=== PATIENT | female | born 1965 | race African-American/Black ===

== ENCOUNTER 2019-07-18 09:55 | Inpatient (IN) ==
[2019-07-18 10:30] LABS: Basophils % 0.6 % (0.0-0.8); Eosinophils # 0.1 10*3/uL (0.0-0.87); Eosinophils % 0.9 % (0.00-10.9); Hematocrit 45.6 VOL% (35.7-47.0); Hemoglobin 14.6 GM/DL (12.0-16.0); Immature Granulocytes % 0.4 %; Immature Granulocytes Absolute 0.03 #; Lymphocytes # 2.6 10*3/uL (1.4-4.0); Lymphocytes % 37.8 % (21.3-54.2); Mean Corpuscular Volume 94.2 FL (87-102); Mean Platelet Volume 12.2 FL (9.6-12.0); Neutrophils % 48.3 % (38.7-73.9); Platelet Count 246 T/CUMM (130-400); Red Blood Count 4.84 MC/CUMM (3.8-5.5); Red Cell Distribution Width 13.3 % (9.3-17.3); White Blood Count 6.8 T/CUMM (4-12)
[2019-07-18 10:58] LABS: Osmolality,Calculated 279.1 MOS/KG (273-304)
[2019-07-18 11:59] LABS: Apearance,Urine Slightly Hazy (Clear); Bacteria,Urine Occasional /HPF (Few); Bilirubin,Urine Negative (Negative); Blood, Urine Negative (Negative); Glucose,Urine (UA) Negative (Negative); Hyaline Casts,Urine 13 /LPF (0-3); Ketones,Urine Negative (Negative); Mucus,Urine Occasional /LPF (Occasional); Nitrite,Urine Negative (Negative); Protein,Urine Negative; RBC,Urine 4 /HPF (0-4); Squamous Epithelial Cell,Urine Occasional /HPF (0-10); Urine Color Yellow (Yellow); Urine Specific Gravity 1.018 (1.001-1.035); WBC,Urine 49 /HPF (0-6)
[2019-07-18] MEDS ORDERED: GLUCAGON 1 MG VIAL IM PRN (12:19)
[2019-07-18] MEDS ORDERED: DEXTROSE 50% 25 GM/50 ML VIAL IV PRN (12:19)
[2019-07-18] MEDS ORDERED: ONDANSETRON 4 MG/2 ML VIAL IV PRN (12:27)
[2019-07-18] MEDS ORDERED: MAGNESIUM SULF RIDER 2 GM in PREMIX 1 EACH IV PRN (12:27)
[2019-07-18] MEDS ORDERED: ZALEPLON 5 MG CAPSULE PO PRN (12:27)
[2019-07-18] MEDS ORDERED: MAGNESIUM SULF RIDER 4 GM in PREMIX 1 EACH IV PRN (12:27)
[2019-07-18] MEDS ORDERED: MORPHINE 4 MG/1 ML VIAL IV PRN (12:27)
[2019-07-18] MEDS ORDERED: SODIUM CHLORIDE 0.9% 500 ML IV STA (15:06)
[2019-07-18] MEDS ORDERED: METOPROLOL TARTRATE 50 MG TABLET ONE (16:12)
[2019-07-18] MEDS ORDERED: METOPROLOL TARTRATE 50 MG TABLET PO ONE (16:23)
[2019-07-18] MEDS ORDERED: DILTIAZEM 50 MG/10 ML VIAL IV ONE (17:18)
[2019-07-18] MEDS: SODIUM CHLORIDE 0.45% 1,000 ML IV SCH (17:54)
[2019-07-18] MEDS ORDERED: METOPROLOL TARTRATE 25 MG TABLET PO SCH (21:00)
[2019-07-18] MEDS ORDERED: FLECAINIDE 100 MG TABLET PO SCH (21:00)
[2019-07-18] MEDS: AMOXICILLIN 875 MG TABLET PO SCH (22:14)
[2019-07-18] MEDS: ATORVASTATIN 40 MG TABLET PO SCH (22:14)
[2019-07-18] MEDS: APIXABAN 5 MG TABLET PO SCH (22:14)
[2019-07-19 05:59] LABS: Risk Ratio 2.72; VLDL CHOLESTEROL 21.6 MG/DL
[2019-07-19 06:06] LABS: Blood Urea Nitrogen 24 MG/DL (7-18); Calcium 8.7 MG/DL (8.5-10.1); Estimated Glom Filtration Rate 67 ML/MIN; Free T4 (Free Thyroxine) 1.14 NG/DL (0.76-1.46); Glucose 151 MG/DL (74-106); Troponin I < 0.015 NG/ML (0.00-0.045)
[2019-07-19] MEDS: LEVOTHYROXINE 100 MCG TABLET PO SCH (06:15)
[2019-07-19] MEDS: SODIUM CHLORIDE 0.45% 1,000 ML IV SCH ×3 (08:15→22:51)
[2019-07-19] MEDS ORDERED: MAGNESIUM HYDROXIDE SUSP 30 ML UDCUP PO PRN (08:17)
[2019-07-19] MEDS ORDERED: diphenhydrAMINE CAP 25 MG CAPSULE PO PRN (08:17)
[2019-07-19] MEDS ORDERED: hydroCHLOROthiazide 12.5 MG CAPSULE PO SCH (09:00)
[2019-07-19] MEDS: AMOXICILLIN 875 MG TABLET PO SCH ×2 (09:40→21:17)
[2019-07-19] MEDS: APIXABAN 5 MG TABLET PO SCH ×2 (09:40→21:22)
[2019-07-19] MEDS: PANTOPRAZOLE 40 MG TABLET PO SCH (09:40)
[2019-07-19] MEDS ORDERED: POTASSIUM CHLORIDE 20 MEQ TABLET PO ONE (15:56)
[2019-07-19] MEDS: ATORVASTATIN 40 MG TABLET PO SCH (21:17)
[2019-07-20 05:26] LABS: Basophils # 0.1 10*3/uL (0.0-0.2); Basophils % 0.9 % (0.0-0.8); Eosinophils # 0.1 10*3/uL (0.0-0.87); Eosinophils % 1.6 % (0.00-10.9); Hematocrit 39.3 VOL% (35.7-47.0); Immature Granulocytes % 0.4 %; Immature Granulocytes Absolute 0.02 #; Lymphocytes # 2.3 10*3/uL (1.4-4.0); Lymphocytes % 41.1 % (21.3-54.2); Mean Corpuscular HGB Conc 31.3 GM/DL (32-36); Mean Corpuscular Volume 96.3 FL (87-102); Mean Platelet Volume 12.3 FL (9.6-12.0); Monocytes % 11.6 % (1.7-12.7); Neutrophils % 44.4 % (38.7-73.9); Platelet Count 208 T/CUMM (130-400); Red Blood Count 4.08 MC/CUMM (3.8-5.5); Red Cell Distribution Width 13.2 % (9.3-17.3); White Blood Count 5.6 T/CUMM (4-12)
[2019-07-20 05:27] LABS: Hemoglobin 12.3 GM/DL (12.0-16.0)
[2019-07-20 05:50] LABS: Calcium 8.5 MG/DL (8.5-10.1); Osmolality,Calculated 278.8 MOS/KG (273-304)
[2019-07-20] MEDS: LEVOTHYROXINE 100 MCG TABLET PO SCH (06:30)
[2019-07-20] MEDS: APIXABAN 5 MG TABLET PO SCH ×2 (08:26→20:26)
[2019-07-20] MEDS: AMOXICILLIN 875 MG TABLET PO SCH ×2 (08:26→20:26)
[2019-07-20] MEDS: PANTOPRAZOLE 40 MG TABLET PO SCH (08:26)
[2019-07-20] MEDS: METOPROLOL TARTRATE 25 MG TABLET PO SCH ×2 (08:26→20:26)
[2019-07-20] MEDS: SODIUM CHLORIDE 0.45% 1,000 ML IV SCH (15:24)
[2019-07-20] MEDS: ATORVASTATIN 40 MG TABLET PO SCH (20:26)
[2019-07-21] MEDS: SODIUM CHLORIDE 0.45% 1,000 ML IV SCH (03:59)
[2019-07-21 04:15] LABS: Basophils % 0.6 % (0.0-0.8); Eosinophils # 0.1 10*3/uL (0.0-0.87); Eosinophils % 0.7 % (0.00-10.9); Hematocrit 38.1 VOL% (35.7-47.0); Hemoglobin 11.9 GM/DL (12.0-16.0); Immature Granulocytes % 0.1 %; Immature Granulocytes Absolute 0.01 #; Lymphocytes # 1.4 10*3/uL (1.4-4.0); Lymphocytes % 19.7 % (21.3-54.2); Mean Corpuscular HGB Conc 31.2 GM/DL (32-36); Mean Corpuscular Volume 96.9 FL (87-102); Mean Platelet Volume 12.1 FL (9.6-12.0); Monocytes % 8.6 % (1.7-12.7); Neutrophils % 70.3 % (38.7-73.9); Platelet Count 199 T/CUMM (130-400); Red Blood Count 3.93 MC/CUMM (3.8-5.5); Red Cell Distribution Width 13.1 % (9.3-17.3); White Blood Count 6.9 T/CUMM (4-12)
[2019-07-21 04:28] LABS: Calcium 8.2 MG/DL (8.5-10.1); Osmolality,Calculated 280.7 MOS/KG (273-304)
[2019-07-21] MEDS: LEVOTHYROXINE 100 MCG TABLET PO SCH (07:27)
[2019-07-21] MEDS ORDERED: MIDAZOLAM 2 MG/2 ML VIAL ONE (08:50)
[2019-07-21] MEDS ORDERED: ROCURONIUM 100 MG/10 ML VIAL IV ONE (08:51)
[2019-07-21] MEDS ORDERED: propofoL 200 MG/20 ML VIAL IV ONE (08:51)
[2019-07-21] MEDS ORDERED: fentaNYL 100 MCG/2 ML VIAL ONE (08:51)
[2019-07-21] MEDS ORDERED: ONDANSETRON 4 MG/2 ML VIAL ONE (08:51)
[2019-07-21] MEDS ORDERED: LIDOCAINE 2% 5 ML VIAL ONE (08:51)
[2019-07-21] MEDS ORDERED: ETOMIDATE 20 MG/10 ML VIAL IV ONE (09:18)
[2019-07-21] MEDS: APIXABAN 5 MG TABLET PO SCH ×2 (09:30→20:54)
[2019-07-21] MEDS: AMOXICILLIN 875 MG TABLET PO SCH ×2 (09:30→20:54)
[2019-07-21] MEDS: PANTOPRAZOLE 40 MG TABLET PO SCH (09:31)
[2019-07-21] MEDS: METOPROLOL TARTRATE 25 MG TABLET PO SCH ×2 (09:31→20:54)
[2019-07-21] MEDS ORDERED: HEPARIN/NACL 0.9% 2 UNITS/ML 500 ML IV ONE (10:14)
[2019-07-21] MEDS ORDERED: HEPARIN/NACL 0.9% 2 UNITS/ML 1,000 ML IV ONE (10:14)
[2019-07-21] MEDS ORDERED: LIDOCAINE 1% 20 ML VIAL ONE (10:14)
[2019-07-21] MEDS ORDERED: ADENOSINE 90 MG/30 ML VIAL IV ONE (12:09)
[2019-07-21] MEDS ORDERED: IBUPROFEN 400 MG TABLET PO PRN (12:25)
[2019-07-21] MEDS ORDERED: ACETAMINOPHEN 325 MG TABLET PO PRN (12:25)
[2019-07-21] MEDS ORDERED: HEPARIN 10,000 UNIT/10 ML VIAL ONE (12:58)
[2019-07-21] MEDS ORDERED: SODIUM CHLORIDE 0.9% 1,000 ML IV ONE (12:58)
[2019-07-21] MEDS ORDERED: SEVOFLURANE 1 UNIT/15 MINUTE INH ONE (12:58)
[2019-07-21] MEDS ORDERED: GLYCOPYRROLATE 0.4 MG/2 ML VIAL ONE (12:58)
[2019-07-21] MEDS ORDERED: NEOSTIGMINE 10 MG/10 ML VIAL ONE (12:58)
[2019-07-21] MEDS: ATORVASTATIN 40 MG TABLET PO SCH (20:54)
[2019-07-22] MEDS: LEVOTHYROXINE 100 MCG TABLET PO SCH (05:33)
[2019-07-22 05:40] LABS: Basophils # 0.1 10*3/uL (0.0-0.2); Basophils % 0.9 % (0.0-0.8); Eosinophils # 0.1 10*3/uL (0.0-0.87); Eosinophils % 1.7 % (0.00-10.9); Hematocrit 32.8 VOL% (35.7-47.0); Hemoglobin 10.2 GM/DL (12.0-16.0); Immature Granulocytes % 0.3 %; Immature Granulocytes Absolute 0.02 #; Lymphocytes # 1.6 10*3/uL (1.4-4.0); Lymphocytes % 27.1 % (21.3-54.2); Mean Corpuscular HGB Conc 31.1 GM/DL (32-36); Mean Platelet Volume 11.8 FL (9.6-12.0); Monocytes % 9.4 % (1.7-12.7); Neutrophils % 60.6 % (38.7-73.9); Platelet Count 198 T/CUMM (130-400); Red Blood Count 3.38 MC/CUMM (3.8-5.5); Red Cell Distribution Width 13.3 % (9.3-17.3); White Blood Count 5.8 T/CUMM (4-12)
[2019-07-22 06:18] LABS: Calcium 8.2 MG/DL (8.5-10.1); Osmolality,Calculated 278.4 MOS/KG (273-304)
[2019-07-22 07:49] VITALS: BP 106/59
[2019-07-22] MEDS: METOPROLOL TARTRATE 25 MG TABLET PO SCH (08:15)
[2019-07-22] MEDS: AMOXICILLIN 875 MG TABLET PO SCH (08:15)
[2019-07-22] MEDS: PANTOPRAZOLE 40 MG TABLET PO SCH (08:16)
[2019-07-22] MEDS: APIXABAN 5 MG TABLET PO SCH (08:16)
== END 2019-07-22 12:10 | disposition home or self-care (01) | DRG 274 ==
LOC: N.ED 09:55 → N.EDINP 12:27 → N.TELEN 15:32 → N.CC 16:15 → N.TELEN 07-21 21:39
PROVIDERS: ADMIT Internal Medicine Cardiovascular Disease; ATTEND Internal Medicine Cardiovascular Disease

== ENCOUNTER 2022-06-09 07:18 | Inpatient (IN) ==
[2022-06-09] MEDS ORDERED: HYDROmorphone 1 MG/1 ML SYRINGE IV STA (07:53)
[2022-06-09] MEDS ORDERED: SODIUM CHLORIDE 0.9% 1,000 ML IV STA (07:53)
[2022-06-09] MEDS ORDERED: ONDANSETRON 4 MG/2 ML VIAL IV STA (07:53)
[2022-06-09] MEDS ORDERED: LABETALOL 20 MG/4 ML SYRINGE IV STA (07:54)
[2022-06-09 08:30] LABS: Basophils % 0.3 % (0.0-0.8); Eosinophils % 0.3 % (0.00-10.9); Hematocrit 34.3 VOL% (35.7-47.0); Immature Granulocytes % 0.4 %; Immature Granulocytes Absolute 0.04 #; Lymphocytes # 2.1 10*3/uL (1.4-4.0); Lymphocytes % 19.8 % (21.3-54.2); Mean Corpuscular HGB Conc 32.1 GM/DL (32-36); Mean Corpuscular Volume 96.6 FL (87-102); Mean Platelet Volume 12.8 FL (9.6-12.0); Monocytes # 0.7 10*3/uL (0.11-0.8); Neutrophils % 73.2 % (38.7-73.9); Platelet Count 244 T/CUMM (130-400); Red Blood Count 3.55 MC/CUMM (3.8-5.5); White Blood Count 10.8 T/CUMM (4-12)
[2022-06-09 08:32] LABS: Calcium 9.6 MG/DL (8.5-10.1); Osmolality,Calculated 289.1 MOS/KG (273-304); Potassium 4.6 MMOL/L (3.5-5.1)
[2022-06-09] MEDS ORDERED: fentaNYL 100 MCG/2 ML VIAL IV STA ×2 (08:33→10:09)
[2022-06-09] MEDS ORDERED: fentaNYL 100 MCG/2 ML VIAL ONE (08:33)
[2022-06-09 08:54] LABS: RBC,Urine 2942 /HPF (0-4)
[2022-06-09 08:55] LABS: Bilirubin,Urine Negative (Negative); Blood, Urine Large mg/dL (Negative); Glucose,Urine (UA) 500 mg/dL (Negative); Ketones,Urine 15 mg/dL (Negative); Nitrite,Urine Negative (Negative); Protein,Urine 30 mg/dL (Negative); Urine Appearance Slightly Cloudy (Clear); Urine Color Red (Yellow); Urine Specific Gravity 1.015 (1.001-1.035); Urine Urobilinogen 0.2 eU/dL (<2.0); Urine pH 6.5 (4.5-8.0)
[2022-06-09] MEDS ORDERED: DIAZEPAM 10 MG/2 ML SYRINGE IV STA (10:09)
[2022-06-09] MEDS ORDERED: DOCUSATE SODIUM 100 MG CAPSULE PO PRN (12:45)
[2022-06-09] MEDS ORDERED: ALBUTEROL 2.5 MG/3 ML NEB RESP TX PRN (12:45)
[2022-06-09] MEDS ORDERED: GLUCAGON 1 MG VIAL IM PRN (12:45)
[2022-06-09] MEDS ORDERED: ONDANSETRON 4 MG/2 ML VIAL IV PRN (12:45)
[2022-06-09] MEDS ORDERED: SIMETHICONE CHEW 125 MG TABLET PO PRN (12:45)
[2022-06-09] MEDS ORDERED: ACETAMINOPHEN 325 MG TABLET PO PRN (12:45)
[2022-06-09] MEDS ORDERED: OXYBUTYNIN 5 MG TABLET PO PRN (12:49)
[2022-06-09] MEDS ORDERED: MAGNESIUM SULF RIDER 2 GM/50 ML PREMIX IV ONE ×2 (12:50→15:19)
[2022-06-09] MEDS ORDERED: DEXTROSE 10% 250 ML BAG IV PRN (12:59)
[2022-06-09] MEDS: SODIUM CHLORIDE 0.9% 1,000 ML IV SCH (13:12)
[2022-06-09 13:43] LABS: Hematocrit 32.2 VOL% (35.7-47.0); Hemoglobin 10.4 GM/DL (12.0-16.0)
[2022-06-09] MEDS: cefTRIAXone 1,000 MG in SODIUM CHLORIDE 0.9% 100 ML IV SCH (13:45)
[2022-06-09 14:05] LABS: Calcium 9.3 MG/DL (8.5-10.1); Osmolality,Calculated 297.4 MOS/KG (273-304)
[2022-06-09] MEDS: MORPHINE 2 MG/1 ML SYRINGE IV PRN (16:00)
[2022-06-09] MEDS: INSULIN LISPRO 100 UNIT/ML SUBCUT SCH ×2 (17:12→20:48)
[2022-06-09 18:28] LABS: Hematocrit 27.7 VOL% (35.7-47.0)
[2022-06-09] MEDS: FLECAINIDE 100 MG TABLET PO SCH (20:48)
[2022-06-09] MEDS: ATORVASTATIN 40 MG TABLET PO SCH (20:48)
[2022-06-10 01:12] LABS: Hematocrit 26.6 VOL% (35.7-47.0); Hemoglobin 8.6 GM/DL (12.0-16.0)
[2022-06-10] MEDS: SODIUM CHLORIDE 0.9% 1,000 ML IV SCH ×2 (01:32→12:21)
[2022-06-10 04:59] LABS: Basophils % 0.3 % (0.0-0.8); Eosinophils % 0.3 % (0.00-10.9); Hemoglobin 8.4 GM/DL (12.0-16.0); Immature Granulocytes % 0.4 %; Immature Granulocytes Absolute 0.05 #; Lymphocytes # 1.9 10*3/uL (1.4-4.0); Lymphocytes % 16.8 % (21.3-54.2); Mean Corpuscular HGB Conc 31.1 GM/DL (32-36); Mean Corpuscular Volume 99.6 FL (87-102); Mean Platelet Volume 12.4 FL (9.6-12.0); Monocytes % 8.6 % (1.7-12.7); Neutrophils % 73.6 % (38.7-73.9); Platelet Count 200 T/CUMM (130-400); Red Blood Count 2.71 MC/CUMM (3.8-5.5); Red Cell Distribution Width 13.4 % (9.3-17.3); White Blood Count 11.5 T/CUMM (4-12)
[2022-06-10 05:40] LABS: Alanine Aminotransferase 10 U/L (13-56); Albumin 2.7 G/DL (3.4-5.0); Alkaline Phosphatase 95 U/L (45-117); Aspartate Amino Transferase 10 U/L (0-37); Bilirubin,Total < 0.39 MG/DL (0.20-1.00); Blood Urea Nitrogen 23 MG/DL (7-18); Calcium 8.6 MG/DL (8.5-10.1); Carbon Dioxide 18 MMOL/L (21-32); Chloride 116 MMOL/L (98-107); Cholesterol 117 MG/DL (50-200); Glucose 113 MG/DL (74-106); HDL Cholesterol 57 MG/DL (40-60); Osmolality,Calculated 285.3 MOS/KG (273-304); Potassium 4.9 MMOL/L (3.5-5.1); Risk Ratio 2.05; Sodium 141 MMOL/L (136-145); Thyroid Stimulating Hormone 0.578 uIU/ml (0.358-3.74); Total Protein 6.6 G/DL (6.4-8.2); Triglycerides 81 MG/DL (2-150); VLDL Cholesterol 16.2 MG/DL
[2022-06-10] MEDS: LEVOTHYROXINE 112 MCG TABLET PO SCH (05:59)
[2022-06-10 07:47] LABS: Hematocrit 26.5 VOL% (35.7-47.0); Hemoglobin 8.3 GM/DL (12.0-16.0)
[2022-06-10] MEDS ORDERED: DEXTROSE 10% 250 ML BAG IV PRN (08:07)
[2022-06-10] MEDS ORDERED: SODIUM CHLORIDE 0.9% 1,000 ML IV PRN ×2 (08:19→16:36)
[2022-06-10] MEDS: INSULIN LISPRO 100 UNIT/ML SUBCUT SCH ×4 (08:59→21:24)
[2022-06-10] MEDS: DILTIAZEM CD 180 MG CAPSULE PO SCH (09:02)
[2022-06-10] MEDS: FLECAINIDE 100 MG TABLET PO SCH ×2 (09:02→21:24)
[2022-06-10] MEDS: PANTOPRAZOLE 40 MG TABLET PO SCH (09:02)
[2022-06-10] MEDS: CITALOPRAM 20 MG TABLET PO SCH (09:04)
[2022-06-10] MEDS: cefTRIAXone 1,000 MG in SODIUM CHLORIDE 0.9% 100 ML IV SCH (12:18)
[2022-06-10 12:39] LABS: Hematocrit 25.1 VOL% (35.7-47.0); Hemoglobin 8.1 GM/DL (12.0-16.0)
[2022-06-10] MEDS ORDERED: BELLADONNA/OPIUM 30 MG SUPP RECTAL PRN (19:53)
[2022-06-10] MEDS: MORPHINE 2 MG/1 ML SYRINGE IV PRN (20:14)
[2022-06-10 20:57] LABS: Hematocrit 26.2 VOL% (35.7-47.0); Hemoglobin 8.3 GM/DL (12.0-16.0)
[2022-06-10] MEDS: ATORVASTATIN 40 MG TABLET PO SCH (21:24)
[2022-06-11 05:30] LABS: Basophils # 0.1 10*3/uL (0.0-0.2); Basophils % 0.6 % (0.0-0.8); Eosinophils # 0.2 10*3/uL (0.0-0.87); Eosinophils % 2.1 % (0.00-10.9); Hematocrit 24.7 VOL% (35.7-47.0); Hemoglobin 7.7 GM/DL (12.0-16.0); Immature Granulocytes % 0.6 %; Immature Granulocytes Absolute 0.06 #; Lymphocytes # 2.2 10*3/uL (1.4-4.0); Lymphocytes % 23.7 % (21.3-54.2); Mean Corpuscular HGB Conc 31.2 GM/DL (32-36); Mean Platelet Volume 12.3 FL (9.6-12.0); Monocytes % 10.9 % (1.7-12.7); Neutrophils % 62.1 % (38.7-73.9); Platelet Count 173 T/CUMM (130-400); Red Blood Count 2.52 MC/CUMM (3.8-5.5); Red Cell Distribution Width 15.4 % (9.3-17.3); White Blood Count 9.3 T/CUMM (4-12)
[2022-06-11 05:51] LABS: Calcium 8.7 MG/DL (8.5-10.1); Potassium 4.7 MMOL/L (3.5-5.1)
[2022-06-11] MEDS ORDERED: SODIUM CHLORIDE 0.9% 1,000 ML IV PRN (05:52)
[2022-06-11] MEDS: LEVOTHYROXINE 112 MCG TABLET PO SCH (06:20)
[2022-06-11] MEDS ORDERED: NEOMYCIN/POLYMYXIN IRRIG SOLN 1 ML AMP BLADDERIRR ONE (06:23)
[2022-06-11] MEDS ORDERED: PANTOPRAZOLE 40 MG VIAL IV ONE (06:30)
[2022-06-11] MEDS ORDERED: fentaNYL 100 MCG/2 ML VIAL ONE (07:31)
[2022-06-11] MEDS ORDERED: ONDANSETRON 4 MG/2 ML VIAL ONE ×2 (07:39→07:54)
[2022-06-11] MEDS ORDERED: LIDOCAINE 2% 5 ML VIAL ONE ×2 (07:39→07:54)
[2022-06-11] MEDS ORDERED: SEVOFLURANE 1 UNIT/15 MINUTE INH ONE ×2 (07:39→07:54)
[2022-06-11] MEDS ORDERED: propofoL 200 MG/20 ML VIAL IV ONE ×2 (07:39→07:54)
[2022-06-11] MEDS ORDERED: cefTRIAXone 1,000 MG VIAL ONE (07:40)
[2022-06-11] MEDS ORDERED: NEOSTIGMINE 10 MG/10 ML VIAL ONE (07:54)
[2022-06-11] MEDS ORDERED: GLYCOPYRROLATE 0.4 MG/2 ML VIAL ONE (07:54)
[2022-06-11] MEDS ORDERED: ROCURONIUM 50 MG/5 ML VIAL IV ONE (07:54)
[2022-06-11] MEDS ORDERED: HYDROmorphone 1 MG/1 ML SYRINGE ONE (08:41)
[2022-06-11] MEDS ORDERED: HYDROmorphone 1 MG/1 ML SYRINGE IV PRN (08:45)
[2022-06-11] MEDS ORDERED: ONDANSETRON 4 MG/2 ML VIAL IV PRN (08:45)
[2022-06-11] MEDS: SODIUM CHLORIDE 0.9% 1,000 ML IV SCH ×2 (10:22→12:40)
[2022-06-11] MEDS: INSULIN LISPRO 100 UNIT/ML SUBCUT SCH ×5 (10:22→21:37)
[2022-06-11] MEDS: FLECAINIDE 100 MG TABLET PO SCH ×2 (11:00→21:54)
[2022-06-11] MEDS: PANTOPRAZOLE 40 MG TABLET PO SCH (11:00)
[2022-06-11] MEDS: CITALOPRAM 20 MG TABLET PO SCH (11:00)
[2022-06-11] MEDS: DILTIAZEM CD 180 MG CAPSULE PO SCH (11:00)
[2022-06-11] MEDS ORDERED: cefTRIAXone 1,000 MG in SODIUM CHLORIDE 0.9% 100 ML IV ONE (12:00)
[2022-06-11] MEDS ORDERED: BENZOCAINE/MENTHOL LOZENGE 18/BOX PO PRN (17:54)
[2022-06-11] MEDS: ATORVASTATIN 40 MG TABLET PO SCH (21:54)
[2022-06-12] MEDS: SODIUM CHLORIDE 0.9% 1,000 ML IV SCH (03:31)
[2022-06-12 04:37] LABS: Basophils % 0.4 % (0.0-0.8); Eosinophils # 0.2 10*3/uL (0.0-0.87); Eosinophils % 2.3 % (0.00-10.9); Hematocrit 31.6 VOL% (35.7-47.0); Immature Granulocytes % 0.2 %; Immature Granulocytes Absolute 0.02 #; Lymphocytes # 1.8 10*3/uL (1.4-4.0); Lymphocytes % 18.9 % (21.3-54.2); Mean Corpuscular HGB Conc 31.6 GM/DL (32-36); Mean Corpuscular Volume 95.2 FL (87-102); Mean Platelet Volume 11.9 FL (9.6-12.0); Monocytes % 10.7 % (1.7-12.7); Neutrophils % 67.5 % (38.7-73.9); Platelet Count 175 T/CUMM (130-400); Red Blood Count 3.32 MC/CUMM (3.8-5.5); Red Cell Distribution Width 16.5 % (9.3-17.3); White Blood Count 9.7 T/CUMM (4-12)
[2022-06-12 05:00] LABS: Calcium 8.4 MG/DL (8.5-10.1); Osmolality,Calculated 288.8 MOS/KG (273-304); Potassium 4.8 MMOL/L (3.5-5.1)
[2022-06-12] MEDS: LEVOTHYROXINE 112 MCG TABLET PO SCH (05:41)
[2022-06-12] MEDS: FLECAINIDE 100 MG TABLET PO SCH (09:31)
[2022-06-12] MEDS: CITALOPRAM 20 MG TABLET PO SCH (09:32)
[2022-06-12] MEDS: INSULIN LISPRO 100 UNIT/ML SUBCUT SCH ×2 (09:32→12:14)
[2022-06-12] MEDS: DILTIAZEM CD 180 MG CAPSULE PO SCH (09:32)
[2022-06-12] MEDS: PANTOPRAZOLE 40 MG TABLET PO SCH (09:32)
[2022-06-12] MEDS: cefTRIAXone 1,000 MG in SODIUM CHLORIDE 0.9% 100 ML IV SCH (09:33)
[2022-06-12 12:21] VITALS: BP 107/62
== END 2022-06-12 16:23 | disposition home or self-care (01) | DRG 982 ==
LOC: N.ED 07:18 → N.EDINP 12:45 → SUATTDRO 12:45 → N.EDINP 14:00 → N.2E 14:07
PROVIDERS: ADMIT Internal Medicine; ATTEND Internal Medicine